=== PATIENT | female | born 1990 | race Caucasian/White ===

== ENCOUNTER 2022-11-26 13:50 | Emergency (ER) | payer OTHER, SELFPAY ==
[2022-11-26 13:57] VITALS: BP 141/92; PULSE 80; RESP 16; TEMP 36.4; O2SAT 98; BMI 27.4
[2022-11-26 15:44] LABS: Influenza A - CEPHEID Flu A NEGATIVE (NEGATIVE); Influenza B - CEPHEID Flu B NEGATIVE (NEGATIVE); Respiratory Syncytial Virus Negative (Negative)
[2022-11-26 15:59] LABS: COVID-19 CEPHEID 4-PLEX PCR Negative (Negative)
[2022-11-26 16:46] VITALS: BP 130/76; PULSE 72; O2SAT 97
--- NOTE | 2022-11-26 19:51 | ED.URI ---
HPI - URI/Sore Throat <Genesis Medina PA-C - Last Filed: 11/26/22 19:57> General Chief Complaint: Upper Respiratory Symptoms Stated Complaint: thinks acute bronchitis Time Seen by Provider: 11/26/22 14:43 History of Present Illness HPI Narrative: 32-year-old female with no reported past medical history presents to the ED with 3 days of upper respiratory infection symptoms. Patient states her symptoms started with a sore throat, followed by a runny nose and cough. T-max reported as 99.2. Patient denies chest pain, shortness of breath, nausea, vomiting, lightheadedness, dizziness, syncope. Related Data Previous Rx's Medication Instructions Recorded benzonatate 200 mg capsule 200 mg PO TID PRN cough #30 caps 11/26/22 Review of Systems <Genesis Medina PA-C - Last Filed: 11/26/22 19:57> Review of Systems ROS Unobtainable: All systems reviewed & are unremarkable except as noted in HPI and below Constitutional Constitutional: Denies chills, Reports fatigue, Reports fever(s), Denies frequent falls, Denies lethargy and Denies weakness Eyes Eyes: Denies change in vision, Denies eye discharge, Denies irritation and Denies loss of vision ENT Ears, Nose, Mouth, and Throat: Denies change in voice, Denies dizziness, Reports nasal discharge, Denies neck pain, Denies sore throat and Denies throat swelling Cardiovascular Cardiovascular: Denies chest pain, Denies irregular heart rhythm, Denies lightheadedness, Denies palpitations, Denies dyspnea, Denies dyspnea on exertion and Denies orthopnea Respiratory Respiratory: Reports cough, Denies dyspnea, Denies dyspnea on exertion and Denies wheezing Gastrointestinal Gastrointestinal: Denies abdominal pain, Denies change in bowel habits, Denies diarrhea, Denies nausea and Denies vomiting Genitourinary Genitourinary: Denies hematuria, Denies flank pain, Denies urinary incontinence and Denies urinary urgency Musculoskeletal Musculoskeletal: Denies back pain, Denies muscle weakness, Denies neck pain, Denies numbness and Denies tingling Integumentary/Breasts Skin/Breast: Denies pruritus, Denies erythema, Denies rash and Denies wounds Neurologic Neurologic: Denies behavioral changes, Denies confusion, Denies dizziness, Denies frequent falls, Denies loss of vision, Denies numbness, Denies tingling and Denies weakness Psychiatric Psychiatric: Denies anxiety, Denies behavioral changes, Denies confusion, Denies depression, Denies homicidal ideation and Denies suicidal ideation Endocrine Endocrine: Reports fatigue, Denies flushing and Denies palpitations Hematologic/Lymphatic Hematologic/Lymphatic: Denies easy bruising Allergic/Immunologic Allergic/Immunologic: Denies urticaria, Denies throat swelling and Denies wheezing Exam <Genesis Medina PA-C - Last Filed: 11/26/22 19:57> Narrative Exam Narrative: Const General:?cooperative, healthy appearing and comfortable [facility] Head:?normal to inspection Ears:?hearing grossly normal bilaterally Nose:?external nose normal Face and sinus:?normal facial exam and sinuses nontender Mouth:?oral mucosae normal Throat:?posterior oropharynx normal Eyes General:?appearance normal, both eyes and all related structures Neck Neck:?normal visual inspection and no lymphadenopathy noted Resp Effort & Inspection:?normal respiratory effort Auscultation:?clear to auscultation bilaterally Cardio Rate:?regular rate Rhythm:?regular rhythm Neuro General:?patient alert, patient awake and patient oriented x3 Initial Vital Signs Initial Vital Signs: Vital Signs Temperature 97.6 F 11/26/22 13:57 Pulse Rate 80 11/26/22 13:57 Respiratory Rate 16 11/26/22 13:57 Blood Pressure 141/92 H 11/26/22 13:57 Pulse Oximetry 98 11/26/22 13:57 Oxygen Delivery Method Room Air 11/26/22 13:57 <Tyron Bagley DO - Last Filed: 11/28/22 06:59> Initial Vital Signs Initial Vital Signs: Vital Signs Temperature 97.6 F 11/26/22 13:57 Pulse Rate 80 11/26/22 13:57 Respiratory Rate 16 11/26/22 13:57 Blood Pressure 141/92 H 11/26/22 13:57 Pulse Oximetry 98 11/26/22 13:57 Oxygen Delivery Method Room Air 11/26/22 13:57 Course <BETI Marie Last Filed: 11/26/22 19:57> Orders Ordered: ED Orders 11/26/22 14:02 Covid-19 + FLU A/B + RSV - PCR Stat Vital Signs Vital signs: Vital Signs - 8 hr 11/26/22 13:57 11/26/22 16:46 Temperature 97.6 F Pulse Rate 80 72 Respiratory Rate 16 Blood Pressure 141/92 H 130/76 Pulse Oximetry 98 97 Oxygen Delivery Method Room Air Room Air <Tyron Bagley DO - Last Filed: 11/28/22 06:59> Orders Ordered: ED Orders 11/26/22 14:02 Covid-19 + FLU A/B + RSV - PCR Stat Vital Signs Vital signs: Vital Signs - 8 hr 11/26/22 13:57 11/26/22 16:46 Temperature 97.6 F Pulse Rate 80 72 Respiratory Rate 16 Blood Pressure 141/92 H 130/76 Pulse Oximetry 98 97 Oxygen Delivery Method Room Air Room Air MDM - URI/Sore Throat <Genesis Medina PA-C - Last Filed: 11/26/22 19:57> Lab Data Labs: Lab Results 11/26/22 Range/Units 14:02 SARS-CoV-2 (PCR) Negative (Negative) Influenza A (RT-PCR) Flu a negative (NEGATIVE) Influenza B (RT-PCR) Flu b negative (NEGATIVE) RSV (PCR) Negative (Negative) MDM Narrative Medical decision making narrative: 32-year-old female with no reported past medical history presents to the ED with 3 days of upper respiratory infection symptoms. Obtained respiratory panel, patient was negative for COVID-19, influenza, RSV. Physical exam was reassuring. Patient's systems most consistent with a viral upper respiratory infection. Will prescribe Tessalon Perles for cough. Recommend supportive care with Tylenol/ibuprofen, Tessalon Perles, Delsym. Recommend good hydration. Patient agrees to follow-up with her PCP. ED return precautions were discussed with patient. Patient verbalized understanding. Medical records reviewed: Yes <Tyron Bagley DO - Last Filed: 11/28/22 06:59> Lab Data Labs: Lab Results 11/26/22 Range/Units 14:02 SARS-CoV-2 (PCR) Negative (Negative) Influenza A (RT-PCR) Flu a negative (NEGATIVE) Influenza B (RT-PCR) Flu b negative (NEGATIVE) RSV (PCR) Negative (Negative) Discharge Plan Departure Patient Disposition: Home Clinical Impression: Upper respiratory infection Instructions: DI for Viral Upper Respiratory Infection -- Adult Activity Restrictions/Additional Instructions: You were evaluated in the ED today for an upper respiratory infection. You tested negative for COVID-19, influenza a, influenza B, RSV. That being said, you likely have some other viral infection. You are being prescribed Tessalon Perles for cough. You may take it along with Delsym or Mucinex as well. Please take Tylenol or ibuprofen for aches and pains and fever. Return to the ED if you have any trouble breathing. Please follow-up with your PCP as soon as possible. Prescriptions: New benzonatate 200 mg capsule 200 mg PO TID PRN (Reason: cough) Qty: 30 0RF Stand Alone Forms: Patient Portal/API, Work Release Note <Tyron Bagley, DO - Last Filed: 11/28/22 06:59> Cosign ED Attending Cosignature Attestation: Dr Bagley Co-Sign Statement: I was available for consultation during this patient's emergency department visit. This chart is signed by myself for administrative purposes only. I did not have direct contact with this patient during this visit. They were seen independently by the APC.
== END 2022-11-26 16:50 | disposition home or self-care (01) ==
PROVIDERS: Emergency Medicine; Emergency Provider Student in an Organized Health Care Education/Training Program
DX: J06.9 Acute upper respiratory infection, unspecified (principal)
CPT/HCPCS: 0241U; 99281; 99282

== ENCOUNTER 2023-01-03 17:54 | Emergency (ER) | payer OTHER, SELFPAY ==
[2023-01-03 17:58] VITALS: BP 144/97; PULSE 87; RESP 16; TEMP 36.7; O2SAT 100; BMI 27.4
--- NOTE | 2023-01-03 19:56 | ED_ITS ---
HPI - Headache General Chief Complaint: Headache Stated Complaint: hit head t-30/blurry vision Time Seen by Provider: 01/03/23 18:08 Mode of arrival: Ambulatory History of Present Illness HPI Narrative: Otherwise healthy 32-year-old woman presents complaining of the headache. She describes an episode at work where she hit her head while wearing a hard hat against a scaffolding. She was going up some stairs, the front part of the had hit her head was knocked backwards and she is had some neck and left shoulder pain that she saw the healthcare worker on-site as well as her primary care doctor about. She is complaining of persistent headache that is getting worse. She describes it as frontotemporal with some pain at the base of her skull. Over the ensuing interval 4 weeks she is noticed that she is had increasingly blurry vision for the last week. She feels that the neck and shoulder pain has gotten bit better. She notes that she is having difficulty focusing, concentrating, difficulty when she is looking at her phone in texting and hitting the correct keys but not so much in reading a book. She notes that reflective surface is light computer screens or driving seem to exacerbate her symptoms. Clearly the noise and fluorescent lights at work are also making symptoms worse. She states she does have a history of migraine headache but thi s feels somewhat different. She is not having nausea vomiting or diarrhea. Related Data Previous Rx's Medication Instructions Recorded benzonatate 200 mg capsule 200 mg PO TID PRN cough #30 caps 11/26/22 Allergies Allergy/AdvReac Type Severity Reaction Status Date / Time No Known Drug Allergies Allergy Verified 01/03/23 18:03 Review of Systems Review of Systems Narrative: Pertinent positive and negative findings as per HPI Patient History Social History Smoking Status: Never smoker Smoking Status: Never smoker alcohol intake frequency: a few times a month Exam Initial Vital Signs Initial Vital Signs: Vital Signs Temperature 98.1 F 01/03/23 17:58 Pulse Rate 87 01/03/23 17:58 Respiratory Rate 16 01/03/23 17:58 Blood Pressure 144/97 H 01/03/23 17:58 Pulse Oximetry 100 01/03/23 17:58 Oxygen Delivery Method Room Air 01/03/23 17:58 General: Healthy appearing, in no acute distress. Able to give a complete and coherent history. Well-nourished well-developed HEENT: Moist mucous membranes, normal sclera with reactive pupils, Neck: No significant occipital insertion or paraspinous muscle tenderness. Supple Respiratory: Lungs are clear to auscultation, no wheezing no rales no rhonchi. Full and symmetrical air movement Cardiac: Regular rate and rhythm no murmurs no bruits Abdomen: Soft, nontender, good bowel tones, no flank pain Skin: Warm and dry, no rashes Neurologic: Grossly neurologically intact with no obvious asymmetries or abnormalities Extremities: No trauma, well perfused Psych: Cooperative, appropriate insight and affect Course Orders Ordered: ED Orders 01/03/23 20:15 CT head/brain wo con Stat 01/03/23 20:30 Complete Blood Count AUTO DIFF Stat 01/03/23 22:06 Comprehensive Metabolic Panel Stat Discontinued Medications Dexamethasone (Dexamethasone 10 Mg/Ml Vial) 10 mg IV NOW ONE Stop: 01/03/23 20:15 Last Admin: 01/03/23 20:41 Dose: 10 mg Documented By: URIEL Diphenhydramine HCl (Diphenhydramine 50 Mg/Ml Vial) 25 mg IV NOW ONE Stop: 01/03/23 20:15 Last Admin: 01/03/23 20:42 Dose: 25 mg Documented By: URIEL Sodium Chloride (Normal Saline 0.9%) 1,000 mls @ 1,000 mls/hr IV BOLUS ONE Stop: 01/03/23 21:13 Last Infusion: 01/03/23 21:29 Dose: 0 mls/hr Documented By: Admin: 01/03/23 20:39 Dose: 1,000 mls/hr Documented By: URIEL Ketorolac Tromethamine (Ketorolac 30 Mg/Ml Vial) 1 mg IV NOW ONE Stop: 01/03/23 20:15 Last Admin: 01/03/23 20:38 Dose: Not Given Documented By: URIEL Ketorolac Tromethamine (Ketorolac 30 Mg/Ml Vial) 15 mg IV NOW ONE Stop: 01/03/23 20:38 Last Admin: 01/03/23 20:43 Dose: 15 mg Documented By: URIEL Prochlorperazine (Prochlorperazine 10 Mg/2 Ml Vial) 10 mg IV NOW ONE Stop: 01/03/23 20:15 Last Admin: 01/03/23 20:40 Dose: 10 mg Documented By: URIEL Vital Signs Vital signs: Vital Signs - 8 hr 01/03/23 17:58 01/03/23 20:31 01/03/23 20:40 Temperature 98.1 F Pulse Rate 87 89 82 Respiratory Rate 16 16 Blood Pressure 144/97 H 138/85 138/85 Pulse Oximetry 100 96 Oxygen Delivery Method Room Air Room Air 01/03/23 21:30 Temperature Pulse Rate 81 Respiratory Rate 20 Blood Pressure 116/69 Pulse Oximetry 99 Oxygen Delivery Method Room Air MDM - Headache Lab Data 01/03/23 20:30 01/03/23 22:26 Labs: Lab Results 01/03/23 01/03/23 Range/Units 20:30 22:26 WBC 5.6 (4.5-11.0) X10^3/uL RBC 4.46 (4.0-5.2) X10^6/uL Hgb 13.3 (12.0-16.0) g/dL Hct 39.6 (36-46) % MCV 88.7 (80-100) fL MCH 29.8 (26-34) PG MCHC 33.6 (30-36) % RDW 14.7 (11.6-14.8) % Plt Count 247 (150-400) X10^3/uL Neut % (Auto) 63.1 (50-75) % Lymph % (Auto) 30.9 (25-40) % [place] % (Auto) 4.0 (3-14) % Eos % (Auto) 0.9 L (2-4) % Baso % (Auto) 1.1 (0-2) % Neut # (Auto) 3600 (6878-1992) /uL Lymph # (Auto) 1700 (6408-5407) /uL [place] # (Auto) 200 (0-900) /uL Eos # (Auto) 100 (0-450) /uL Baso # (Auto) 100 (0-100) /uL Sodium 137 (137-145) mmol/L Potassium 4.2 (3.4-5.1) mmol/L Chloride 108 H (98-107) mmol/L Carbon Dioxide 24 (22-32) mmol/L BUN 9 (7-17) mg/dL Creatinine 0.58 (0.52-1.04) mg/dL Estimated GFR > 60 (>60) mL/min BUN/Creatinine Ratio 15.5 (6-22) Glucose 84 (70-100) mg/dL Calcium 7.9 L (8.4-10.2) mg/dL Total Bilirubin 0.4 (0.2-1.3) mg/dL AST 17 (14-36) IU/L ALT 15 (<35) IU/L Alkaline Phosphatase 55 (38-126) U/L Total Protein 6.7 (6.3-8.2) g/dL Albumin 3.7 (3.5-5.0) g/dL Globulin 3.0 (1.7-4.1) g/dL Albumin/Globulin Ratio 1.2 (1.0-2.8) MDM Narrative Medical decision making narrative: CC: Persistent headache, blurry vision, cognitive slowing. This is a new problem over the last month becoming progressively worse uncertain prognosis Data collected from: patient, Differential considered: Postconcussion syndrome, intracranial hemorrhage, migraine headache Exam documented above, pertinent findings include: Benign exam including neurologic exam. Visual exam is 2020 bilaterally with her glasses in place Lab Test results independently reviewed as above. Pertinent findings: CBC is unremarkable Chemistries are reassuring Imaging studies independently reviewed: CT scan of the head does not show any acute intracranial pathology Treatments: IV fluids, Toradol, dexamethasone, Compazine and Benadryl. Re-evaluations: 10:20pm Headache resolved. Feeling much better. At this time there is no evidence of intracranial hemorrhage or other pathology that would require additional imaging or hospitalization. Headache is significantly i mproved. I suspect this does a component of postconcussion syndrome after the concussion she suffered almost a month ago and an exacerbation of chronic migraine. This point she is feeling significantly improved and she is safe for discharge home. Emergency Medicine: Utilization of CT for Minor Blunt Head Trauma (Adult) Patient is 18 or older, presenting with minor blunt head trauma. Head CT was ordered by an emergency livestock caretaker for trauma because Patient has focal neurologic deficit Patient has severe headache Discharge Plan Departure Patient Disposition: Home Clinical Impression: Post concussion syndrome Headache Qualifiers: Headache type: unspecified Instructions: DI for Postconcussion Syndrome Activity Restrictions/Additional Instructions: Thank you for coming in today I agree that it is concerning that your continuing to have symptoms a month after your minor head injury. Your describing symptoms consistent with postconcussion syndrome. Cognitive rest is the most appropriate treatment for this. Taking the next week off is going to be perfect for you. With your headache, I am wondering if this is a migraine variant. Your symptoms responded nicely to typical migraine treatment. Using 400 mg of ibuprofen (2 gbkj-ope-[id number] pills) and 1 Tylenol every 6 hours can be very helpful in controlling pain. If you find that your having new symptoms or additional findings, please feel free to return to the emergency department. Your continuing to have these low- grade symptoms I would encourage you to follow up with her primary care doctor. Prescriptions: No Action benzonatate 200 mg capsule 200 mg PO TID PRN (Reason: cough) Qty: 30 0RF Referrals: Estrella Wills ARNP [Primary Care Provider] - Stand Alone Forms: Patient Portal/API
--- NOTE | 2023-01-03 20:15 | DI.CT.S_ITS ---
PROCEDURE: CT HEAD/BRAIN WO CON INDICATIONS: headache after trauma one month ago TECHNIQUE: Noncontrast 4.5 mm thick angled axial sections acquired from the foramen magnum to the vertex, with coronal and sagittal reformats. For radiation dose reduction, the following was used: automated exposure control, adjustment of mA and/or kV according to patient size. COMPARISON: None. FINDINGS: Image quality: Excellent. CSF spaces: Basal cisterns are patent. No extra-axial fluid collections. Ventricles are normal in size and shape. Brain: No intracranial hemorrhage, mass, or mass effect. Crook-white matter interface appears preserved. Skull and face: Calvarium and visualized facial bones are intact, without suspicious lesions. Sinuses: Visualized sinuses and mastoids are clear. IMPRESSION: 1. No acute intracranial abnormality. Dictated by: Gilson Ryan M.D. on 01/03/2023 at 21:55 Approved by: Gilson Ryan M.D. on 01/03/2023 at 21:56
[2023-01-03 20:31] VITALS: BP 138/85; PULSE 89; RESP 16; O2SAT 96
[2023-01-03] MEDS: SODIUM CHLORIDE 0.9% 1,000 ML 1000 ML IV (20:39)
[2023-01-03 20:40] VITALS: BP 138/85; PULSE 82
[2023-01-03 20:40] LABS: Add Manual Diff / Slide Review NO; Basophils Absolute Auto 100 /uL (0-100); Basophils Percent Auto 1.1 % (0-2); Eosinophils Absolute Auto 100 /uL (0-450); Eosinophils Percent Auto 0.9 % (2-4); Hematocrit 39.6 % (36-46); Hemoglobin 13.3 g/dL (12.0-16.0); Lymphocytes Absolute Auto 1700 /uL (1100-4500); Lymphocytes Percent Auto 30.9 % (25-40); Mean Corpuscular HGB Conc 33.6 % (30-36); Mean Corpuscular Hemoglobin 29.8 PG (26-34); Mean Corpuscular Volume 88.7 fL (80-100); Monocytes Absolute Auto 200 /uL (0-900); Neutrophils Absolute Auto 3600 /uL (1500-7000); Neutrophils Percent Auto 63.1 % (50-75); Platelet Count 247 X10^3/uL (150-400); Red Blood Cell Count 4.46 X10^6/uL (4.0-5.2); Red Cell Distribution Width 14.7 % (11.6-14.8); White Blood Cell Count 5.6 X10^3/uL (4.5-11.0)
[2023-01-03] MEDS: PROCHLORPERAZINE 10 MG/2 ML VIAL IV (20:40)
[2023-01-03] MEDS: DEXAMETHASONE 10 MG/ML VIAL IV (20:41)
[2023-01-03] MEDS: diphenhydrAMINE 50 MG/ML VIAL 25 MG IV (20:42)
[2023-01-03] MEDS: KETOROLAC 30 MG/ML VIAL 15 MG IV (20:43)
[2023-01-03 21:30] VITALS: BP 116/69; PULSE 81; RESP 20; O2SAT 99
[2023-01-03 22:49] LABS: Alanine Aminotransferase 15 IU/L (<35); Albumin 3.7 g/dL (3.5-5.0); Albumin Globulin Ratio 1.2 (1.0-2.8); Alkaline Phosphatase 55 U/L (38-126); Aspartate Aminotransferase 17 IU/L (14-36); BUN Creatinine Ratio 15.5 (6-22); Bilirubin Total 0.4 mg/dL (0.2-1.3); Blood Urea Nitrogen 9 mg/dL (7-17); Calcium 7.9 mg/dL (8.4-10.2); Carbon Dioxide 24 mmol/L (22-32); Chloride 108 mmol/L (98-107); Estimated Glomerular Filt Rate > 60 mL/min (>60); Glucose 84 mg/dL (70-100); HEMOLYSIS < 15 (0-50); Potassium 4.2 mmol/L (3.4-5.1); Sodium 137 mmol/L (137-145); Total Protein 6.7 g/dL (6.3-8.2)
[2023-01-03 23:04] VITALS: BP 116/67; PULSE 76; RESP 16; O2SAT 97
== END 2023-01-03 23:06 | disposition home or self-care (01) ==
PROVIDERS: Emergency Provider Emergency Medicine; PCP Registered Nurse
DX: G44.319 Acute post-traumatic headache, not intractable (principal); F07.81 Postconcussional syndrome; H53.9 Unspecified visual disturbance
CPT/HCPCS: 36415; 70450; 80053; 85025; 96361; 96374; 96375; 99284; J0780; J1100; J1200; J1885

== ENCOUNTER → 2023-07-09 19:28 | Outpatient (CLI) | payer OTHER, SELFPAY ==
--- NOTE | 2023-07-09 | DI.MRI.S_ITS ---
PROCEDURE: MR WRIST LT WO CON INDICATIONS: Pain in left wrist TECHNIQUE: Noncontrast coronal proton density fast spin echo and T2 fast spin echo with fat saturation; coronal 3-D gradient echo, axial T1 spin echo and T2 fast spin echo with fat saturation, sagittal T1 spin echo through the wrist. COMPARISON: None. FINDINGS: Image quality: Excellent. Bones and cartilage: The carpal bones are normally aligned. No bone marrow contusions or fractures. No evidence for avascular necrosis. Nonspecific subcortical cystic area involving distal triquetrum is seen. Overlying cartilage surfaces appear normal. Carpal ligaments: The scapholunate ligament is mildly thickened with intrasubstance T2 hyperintense signal. The lunotriquetral ligament appears intact. In the absence of intra-articular contrast, the extrinsic carpal ligaments are not well identified. On sagittal images, the pisohamate ligament appears intact. Triangular fibrocartilage complex: T2 hyperintense signal involving medial periphery of triangular fibrocartilage near its ulnar insertion is seen. The adjacent meniscal homolog appears normal in the absence of intra-articular contrast. The extensor carpi ulnaris tendon is normal in location and morphology. Tendons and soft tissues: The carpal tunnel structures appear normal, including the median nerve. The ulnar nerve appears normal within Guyon's canal. All six extensor tendon compartments demonstrate normal morphology, without pathologic tendon sheath fluid. No soft tissue ganglion cysts. IMPRESSION: 1. Low-grade sprain/intrasubstance partial-thickness tear involving scapholunate ligament. No full-thickness ligament rupture. The lunotriquetral ligament is intact. 2. Finding is concerning for subtle triangular fibrocartilage complex tear near its ulnar insertion. 3. Extensor and flexor tendons are intact. 4. No marrow edema. No fracture or dislocation. No evidence of avascular necrosis. Dictated by: Fredy Villafuerte M.D. on 07/10/2023 at 11:40 Approved by: Fredy Villafuerte M.D. on 07/10/2023 at 12:47
== END ==
PROVIDERS: PCP Registered Nurse; Referring Provider Registered Nurse; Visit Provider Registered Nurse
DX: S63.592A Other specified sprain of left wrist, initial encounter (principal); M25.532 Pain in left wrist
CPT/HCPCS: 73221